=== PATIENT | female | born 1940 | race Caucasian/White ===

== ENCOUNTER 2017-04-16 17:19 | Emergency (ER) | payer OTHER ==
[~2017-04-16] VITALS: Ht 160 cm; Wt 44.5 kg
[~2017-04-16 17:19] MED LIST: ACETAMINOPHEN-1 EAC1 PO; ASPIRIN325; CALCIUM; COREG6.25 MG PO; FISHOIL; HYDROCHLOROTHIA25 M1 PO; HYDROCODONE-AP1 EAC6 PO; LISINOPRIL10 MG; LISINOPRIL5 MG PO; LOVENOX SUBQ; LUTEIN20 MG PO; METAMUCIL PAC1 UDPK1; MULTIVITAMINS PO; NORCO 5-325 TA1 EACH PO; PRAVACHOL40 M1 PO; PRAVASTATIN SOD20 MG; STOOL SOFTENER1 EAC2 PO; ULTRAM 50MG TAB50 MG PO; VITAMIN D1000 UNI1; [UNRECOGNIZED DRUG - OTHER] PO
[2017-04-16 18:01] VITALS: BP 159/62
== END 2017-04-16 18:02 | disposition home or self-care (01) ==
LOC: M.ERS 17:19
DX: S01.01XA Laceration without foreign body of scalp, initial encounter (principal); I10 Essential (primary) hypertension; F17.210 Nicotine dependence, cigarettes, uncomplicated; Z88.5 Allergy status to narcotic agent; Z88.1 Allergy status to other antibiotic agents; W22.8XXA Striking against or struck by other objects, initial encounter; Y93.89 Activity, other specified; Y92.038 Other place in apartment as the place of occurrence of the external cause; Y99.8 Other external cause status

== ENCOUNTER 2017-04-26 13:20 | Emergency (ER) | payer OTHER ==
[~2017-04-26] VITALS: Ht 160 cm; Wt 44.5 kg
[2017-04-26 13:51] VITALS: BP 180/87
== END 2017-04-26 13:53 | disposition home or self-care (01) ==
LOC: M.ERS 13:20
DX: S01.01XD Laceration without foreign body of scalp, subsequent encounter (principal); I10 Essential (primary) hypertension; F17.210 Nicotine dependence, cigarettes, uncomplicated; Z88.8 Allergy status to other drugs, medicaments and biological substances; Z88.5 Allergy status to narcotic agent; X58.XXXD Exposure to other specified factors, subsequent encounter

== ENCOUNTER → 2019-02-28 | Outpatient (CLI) | payer MEDICARE ==
--- NOTE | 2019-02-28 15:06 | CARDNUC ---
[place] [address] CARDIAC NUCLEAR IMAGING REPORT Name: MILLICENTANUPAM Lopez Room: [facility]#: [id number] Admission: 02/28/19 Attend Phys: Benito Mccray, Discharge: Date of : 44 Date of Service: 02/28/19 1506 Report #: [id number] THIS REPORT FOR: //name// APPROVED REPORT Imaging Protocol: Rest Tc-99m/Stress Tc-99m 1 day Study performed: 02/28/2019 09:30:08 Indication: Chest pain, Dyspnea Patient Location: Out-Patient Stress Tech: Rama Jones Stress Nurse: Yuliya Vela RN NM Tech:DANIEL Thornton Ht: 4 ft 11 in Wt: 98 lbs BSA: 1.36 m2 BMI: 19.79 Medical History Medical History: Angina, Arrhythmia, CAD, Current Smoker, COPD, Fatigue, HTN, Hyperlipidemia, SOB, Weakness, Spinal Fusion, LE edema, Palpitations. Medications: Pravastatin, Lisinopril/HCTZ, ASA 325 Mg. Allergies: Actonel, Biaxin, Codeine, HCTZ/Triameterene. Cardiac Risk Factors: Age, Current Smoker, FHX of CAD, HTN, Hyperlipidemia, SOB. Previous Cardiac Procedures: Cardiac Catherization Pretest Chest Pain Characteristics: No chest pain Exercise History: Sedentary Physical Disabilities: Spinal fustion, Kyphosis Meds Held (24 hrs): None Resting Data Rest SPECT myocardial perfusion imaging was performed in supine position 30 minutes following the intravenous injection of 10.5 mCi of Tc-99m Sestamibi. Time of rest injection: 0800 Date: 02/28/2019 The images were gated to evaluate regional wall motion and calculate left ventricular ejection fraction. Administration Route: IV Administration Site: Left AC Pharmacologic Stress Pharmacologic stress test was performed by injecting Regadenoson 0.4 mg IV push over 10-15 seconds immediately followed by the intravenous injection of 34.0 mCi of Tc-99[place] [address] CARDIAC NUCLEAR IMAGING REPORT Name: MILLICENT,ANUPAM John Room: [facility]#: [id number] Admission: 02/28/19 Attend Phys: Benito Mccray, Discharge: Date of : 44 Date of Service: 02/28/19 1506 Report #: [id number] Time of stress injection: Date: 02/28/2019 Administration Route: IV Administration Site: Left AC Gated Stress SPECT was performed 40 minutes after stress injection. The images were gated to evaluate regional wall motion and calculate left ventricular ejection fraction. Prone imaging was performed. Stress Test Details Stress Test: Pharmacologic stress testing performed using 0.4 mg of regadenoson per 5 mL given IV over 10 seconds. Reason for pharmacologic stress test: Spinal fusion, Back pain, Kyphosis.. HR Max Heart Rate (APMHR): 143 bpm Resting HR: 86 bpm Target HR (85% APMHR): 121 bpm Max HR Achieved: 110 bpm % of APMHR: 76 Recovery HR: 94 bpm BP Resting BP: 163/87 mmHg Max BP: 139/79 mmHg Recovery BP: 161/87 mmHg ECG Resting ECG: Sinus Rhythm, nonspecific ST-T abnormalities Stress ECG: Sinus Tachycardia, nonspecific ST-T abnormalities ST Change: None Arrhythmia: None Recovery ECG: Sinus Rhythm, nonspecific ST-T abnormalities Recovery ST Change: None Recovery Arrhythmia: None Clinical Reason for Termination: Completed protocol Stress Symptoms: Dyspnea Exercise duration: 00 min 00 sec Exercise capacity: 1.00 METs The patient tolerated Lexiscan infusion without significant cardiac [place] [address] CARDIAC NUCLEAR IMAGING REPORT Name: ANUPAM RICKS Room: [facility]#: [id number] Admission: 02/28/19 Attend Phys: Benito Mccray, Discharge: Date of : 44 Date of Service: 02/28/19 1506 Report #: [id number] A 79 year old female presented for sitting Lexiscan r/t CP, NELSON and palpitations. Test well tolerated. Recovery unremarkable with PO caffeine, effective. Patient was escorted by staff to Nuclear Medicine for imaging. Patient was stable and stated she felt good at that time. Stress ECG Conclusion The baseline 12-lead EKG shows sinus rhythm with diffuse nonspecific ST segment depression. EKGs during and post Lexiscan infusion show sinus rhythm and sinus tachycardia with persistent nonspecific ST segment depression. There were no stress-induced arrhythmias. Study Quality Study: Good Artifact: No artifact Study Data At rest, the left ventricular ejection fraction was 88%.. Post stress, the left ventricular ejection was 85%.. TID = 0.94. Perfusion Normal left ventricular perfusion. Wall Motion Normal left ventricular wall motion. Nuclear Conclusion ECG Findings: negative for ischemia Clinical Findings: negative for ischemia Nuclear Findings: negative for ischemia Exercise Capacity: not assessed Left Ventricular Function: normal Risk Study: low Myocardial perfusion images show no defects to suggest infarct or ischemia. Left ventricular systolic function is normal on gated studies. This is a low risk study. <Conclusion> The baseline 12-lead EKG shows sinus rhythm with diffuse nonspecific ST segment depression. EKGs during and post [place] [address] CARDIAC NUCLEAR IMAGING REPORT Name: ANUPAM RICKS [id number] Admission: 02/28/19 Attend Phys: Benito Mccray, Discharge: Date of : 44 Date of Service: 02/28/19 1506 Report #: [id number] sinus rhythm and sinus tachycardia with persistent nonspecific ST segment depression. There were no stress-induced arrhythmias. <ELECTRONICALLY SIGNED> By: Benito Mccray MD, FACC 02/28/19 1506 1506 1506 Benito Mccray MD, FACC /INF
== END ==
LOC: M.NUC 02-01 13:20
DX: R07.9 Chest pain, unspecified (principal); R06.00 Dyspnea, unspecified; I25.10 Atherosclerotic heart disease of native coronary artery without angina pectoris; I10 Essential (primary) hypertension; E78.00 Pure hypercholesterolemia, unspecified; J44.9 Chronic obstructive pulmonary disease, unspecified; Z87.891 Personal history of nicotine dependence; Z79.899 Other long term (current) drug therapy; Z88.8 Allergy status to other drugs, medicaments and biological substances

== ENCOUNTER 2019-08-03 09:19 | Inpatient (IN) | payer MEDICARE ==
[~2019-08-03] VITALS: Ht 149.9 cm; Wt 45.8 kg
[~2019-08-03 09:19] MED LIST changes: -ASPIRIN325 PO; -CALCIUM 600 +1 EAC1 PO; -HYDROCODON-ACE1 EAC7 PO; -TYLENOL325 MG PO
[2019-08-03 09:22] VITALS: BP 162/68
[2019-08-03 10:08] LABS: ABSOLUTE LYMPHOCYTES 0.8 thou/uL (0.8-5.3); ABSOLUTE MONOCYTES 0.3 thou/uL (0.0-1.2); ABSOLUTE NEUTROPHILS 3.7 thou/uL (1.6-8.1); BASOPHILS 0.5 %; EOSINOPHILS 0.6 %; HEMATOCRIT 39.2 % (37.0-47.0); HEMOGLOBIN 14.4 gm/dL (12.0-15.0); LYMPHOCYTES 16.3 %; MCH 33.3 pg (26.0-34.0); MCHC 36.6 g/dL (28.0-37.0); MONOCYTES 6.5 %; NUCLEATED RBCS 0 /100WBC; PLATELET COUNT* 214 thou/uL (150-400); POLYS 76.1 %; RBC 4.31 mil/uL (4.20-5.00); RDW-CV 13.7 % (10.5-14.5); WBC 4.9 thou/uL (4.0-11.0)
[2019-08-03 10:19] LABS: APTT 25.8 Seconds (25.0-31.3); PROTIME 10.4 Seconds (9.20-11.50)
[2019-08-03 10:36] LABS: CALCIUM 8.9 mg/dL (8.5-10.1); POTASSIUM 4.4 mmol/L (3.5-5.1)
--- NOTE | 2019-08-03 10:36 | NUR ---
CT COMPLEATED PT TAKEN FOR X RAY'S
[2019-08-03 10:45] LABS: TOTAL PROTEIN 6.9 g/dL (6.4-8.2)
[2019-08-03 14:25] VITALS: BP 140/67
--- NOTE | 2019-08-03 15:54 | EKG ---
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 : 1940 Requested By: Jimmy Oliveira Order Number: [id number] MD: Vance Campo Measurements Intervals [place] Rate: 88 P: 75 WA: 165 QRS: 65 QRSD: 83 T: 3 QT: 350 QTc: 424 Interpretive Statements Sinus rhythm Borderline repolarization abnormality Compared to ECG 01/08/2017 09:14:51 Possible ischemia no longer present Electronically Signed On 08-03-2019 15:53:28 CDT by Vance Campo [email or web address] <ELECTRONICALLY SIGNED> By: Vance Campo MD, [facility] 08/03/19 1553 0941 0941 Vance Campo MD, [facility] /EPI
[2019-08-03 18:23] VITALS: BP 92/60
[2019-08-03 20:00] VITALS: BP 149/58
[2019-08-04] VITALS: BP 111/47
[2019-08-04 04:00] VITALS: BP 132/59
[2019-08-04 05:35] LABS: ABSOLUTE LYMPHOCYTES 0.6 thou/uL (0.8-5.3); ABSOLUTE MONOCYTES 0.5 thou/uL (0.0-1.2); ABSOLUTE NEUTROPHILS 6.2 thou/uL (1.6-8.1); BASOPHILS 0.4 %; EOSINOPHILS 0.3 %; HEMATOCRIT 34.3 % (37.0-47.0); HEMOGLOBIN 12.6 gm/dL (12.0-15.0); LYMPHOCYTES 8.8 %; MCH 33.7 pg (26.0-34.0); MCHC 36.7 g/dL (28.0-37.0); MCV 91.7 fL (80.0-100.0); MONOCYTES 6.8 %; MPV 7.4 fl. (7.2-11.1); NUCLEATED RBCS 0 /100WBC; PLATELET COUNT* 223 thou/uL (150-400); POLYS 83.7 %; RBC 3.74 mil/uL (4.20-5.00); RDW-CV 13.8 % (10.5-14.5); WBC 7.4 thou/uL (4.0-11.0)
--- NOTE | 2019-08-04 05:38 | NUR ---
ASSESSMENTS COMPLETED AT BEDSIDE, PLEASE SEE CHARTING FOR DETAILS. MEDICATIONS ADMINISTERED PER MAR. HOURLY ROUNDING COMPLETED FOR SAFETY. CURRENTLY RESTING IN BED WITH CALL LIGHT WITHIN REACH. PT HAS HAD CONT PAIN TO LEFT LEG. RECIEVED NEW ORDERS FOR PRN PAIN MEDICATION WITH PARTIAL RELIEF.
[2019-08-04 05:42] LABS: CALCIUM 8.2 mg/dL (8.5-10.1)
[2019-08-04 08:00] VITALS: BP 131/53
--- NOTE | 2019-08-04 12:26 | NUR ---
cm completed initial assessemnt to discuss d/c planning and explain role. pt lives w/her daughter. her daughter and friends are her support community. pt's dtr is working from home at the time. pt is active and independent w/cares. pt quit job on this tues. pt drives. pt has 0 DME. pt has had hh in past, but does not have a preference and "don't want it unless I absolutely have to." Pt also denies hx w/SNF when asked by cm and states, "no, and I don't want to." cm to cont to follow as assist as needed.
[2019-08-04 13:22] VITALS: BP 108/36
[2019-08-04 13:37] LABS: URINE BILIRUBIN NEGATIVE (Negative); URINE BLOOD NEGATIVE (Negative); URINE CLARITY CLEAR; URINE COLOR YELLOW; URINE GLUCOSE-RANDOM NEGATIVE (Negative); URINE KETONES NEGATIVE (Negative); URINE LEUKOCYTES-REFLEX NEGATIVE (Negative); URINE NITRITE-REFLEX NEGATIVE (Negative); URINE PROTEIN NEGATIVE (Negative); URINE UROBILINOGEN 0.2 E.U./dl (0.2-1.0)
[2019-08-04 13:40] LABS: URINE POTASSIUM-RANDOM 20.8 mmol/L
--- NOTE | 2019-08-04 15:31 | NUR ---
ASSUMED CARE OF PATIENT THIS AM AT 0730. PATIENT IS ALERT AND ORIENTED X 4. SHE C/O PAIN AT 8 ON PAIN SCALE THIS AM. PATIENT WAS KEPT NPO UNTIL DR CARREON SAID THAT SHE COULD EAT. PATIENT MEDICATED FOR PAIN PER SCHEDULE. PATIENT STATED PAIN IS NOW CONTROLLED. TELE SHOWS NSR. LEG IMMOBILIZER HAS BEEN INPLACE. PATIENT HAS BEEN WORKING WITH PT AND OT TODAY. URINE SPECIMEN SENT TO LAB. SODIUM CALLED TO DR PEÑA. ORDERS RECIEVED. IV FLUIDS CHANGED TO D5W. FLUID RESTRICTION MAINTAINED. WILL CONTINUE TO MONITOR.
[2019-08-04 17:39] VITALS: BP 127/64
[2019-08-04 20:00] VITALS: BP 112/64
[2019-08-05] VITALS: BP 117/42
[2019-08-05 04:00] VITALS: BP 127/48
[2019-08-05 05:49] LABS: ABSOLUTE BASOPHILS 0.1 thou/uL (0.0-0.2); ABSOLUTE EOSINOPHILS 0.1 thou/uL (0.0-0.7); ABSOLUTE LYMPHOCYTES 1.1 thou/uL (0.8-5.3); ABSOLUTE MONOCYTES 0.5 thou/uL (0.0-1.2); ABSOLUTE NEUTROPHILS 3.8 thou/uL (1.6-8.1); EOSINOPHILS 2.1 %; HEMATOCRIT 33.5 % (37.0-47.0); LYMPHOCYTES 19.7 %; MCH 33.4 pg (26.0-34.0); MCHC 35.9 g/dL (28.0-37.0); MCV 93.2 fL (80.0-100.0); MONOCYTES 9.4 %; MPV 7.2 fl. (7.2-11.1); NUCLEATED RBCS 0 /100WBC; PLATELET COUNT* 214 thou/uL (150-400); POLYS 67.8 %; RBC 3.59 mil/uL (4.20-5.00); RDW-CV 13.8 % (10.5-14.5); WBC 5.6 thou/uL (4.0-11.0)
[2019-08-05 05:55] LABS: CREATININE 0.9 mg/dL (0.6-1.3); POTASSIUM 4.4 mmol/L (3.5-5.1)
--- NOTE | 2019-08-05 05:58 | NUR ---
ASSESSMENTS COMPLETED AT BEDSIDE, PLEASE SEE CHARTING FOR DETAILS. MEDICATIONS ADMINISTERED PER MAR. HOURLY ROUNDING COMPLETED FOR SAFETY. CURRENTLY RESTING IN BED WITH CALL LIGHT WITHIN REACH. ALL CURRENT NEEDS HAVE BEEN MET.
[2019-08-05] MEDS ORDERED: ASPIRIN325 PO (10:49)
[2019-08-05] MEDS ORDERED: HYDROCODON-ACE1 EAC7 PO (10:49)
[2019-08-05 12:00] VITALS: BP 101/50
[2019-08-05 15:48] VITALS: BP 120/52
[2019-08-05 20:00] VITALS: BP 114/61
[2019-08-06] VITALS: BP 126/60
[2019-08-06 04:00] VITALS: BP 123/66
[2019-08-06 09:07] VITALS: BP 124/73
[2019-08-06 12:40] VITALS: BP 128/72
--- NOTE | 2019-08-06 12:46 | NUR ---
PT IN CHAIR NOW DENIES PAIN UNLESS UP AND MOVING IMMOBILIZER IN PLACE WORKED WITH THERAPY DID NOT NEED PAIN MEDS AFTER FLUID RESTRICTION CONTINUES PT HAS USED BEDPAN AND BSC FOR URINATION CALL LIGHT IN REACH
[2019-08-06 17:33] VITALS: BP 132/72
--- NOTE | 2019-08-06 18:25 | NUR ---
PT IS NONWEIGHT-BEARING TO THAT LEFT LOWER EXT. WITH IMMOBILIZER ORTHO STATES COULD BE 2 MONTHS BEFORE SHE IS ABLE TO BEAR WEIGHT
[2019-08-06 19:35] VITALS: BP 148/63
[2019-08-07 00:11] VITALS: BP 110/59
--- NOTE | 2019-08-07 01:30 | NUR ---
ASSUMED CARE OF PT AT 1900. PT IS ALERT AND ORIENTED. VSS. PERRLA. PT REPORTS SOME PAIN. TREATED WITH HYDROCODONE. PT IS IN SINUS RYTHM ON THE TELEMETRY. PT IS RESTING COMFORTABLY IN BED. RESPIRATIONS ARE EVEN AND NONLABORED. WILL CONTINUE TO MONITOR PT.
[2019-08-07 04:00] VITALS: BP 126/66
[2019-08-07 05:32] LABS: CALCIUM 8.5 mg/dL (8.5-10.1); CREATININE 0.8 mg/dL (0.6-1.3); POTASSIUM 4.1 mmol/L (3.5-5.1)
[2019-08-07 08:30] VITALS: BP 117/54
[2019-08-07 11:30] VITALS: BP 118/57
--- NOTE | 2019-08-07 14:00 | NUR ---
SPOKE WITH MAYRA/REHAB [facility]ASON. SHE SAID AUTH IS STILL PENDING WITH INSURANCE. PT.INFORMED. CM WILL FOLLOW.
[2019-08-07 16:00] VITALS: BP 118/58
--- NOTE | 2019-08-07 18:58 | NUR ---
PT IN BED AT THIS TIME PT IS VERY TEARFUL AND "FEELING SORRY FOR HERSELF" PT WANTS TO GO HOME BUT IT IS NOT HANDICAP ACCESSIBLE PT HAS TO GET UP 10 STAIRS TO GET TO HER APARTMENT WALKER NEEDED
[2019-08-07 19:50] VITALS: BP 150/64
[2019-08-08 00:26] VITALS: BP 129/49
--- NOTE | 2019-08-08 03:39 | NUR ---
ASSUMED CARE OF PT AT 1900. PT IS ALERT AND ORIENTED. VSS. PERRLA. NO COMPLAINTS OF PAIN EXCEPT WHEN USING THE BED [place]., PT REFUSES PAIN MEDS. PT IS IN SINUS RYTHM ON THE TELEMETRY. PT IS RESTING COMFORTABLY IN BED. RESPIRATIONS ARE EVEN AND NONLABORED. WILL CONTINUE TO MONITOR PT.
[2019-08-08 04:00] VITALS: BP 111/66
[2019-08-08 07:45] VITALS: BP 117/55
--- NOTE | 2019-08-08 11:40 | NUR ---
PT IN BED THIS AM WORKED WITH PT USED SITTING TO GET UP THE STEPS AND PT STATED PT DID WELL AND WAS SAFE PLAN FOR REHAB TODAY DENIES PAIN CALL LIGHT IN REACH
[2019-08-08 16:40] VITALS: BP 125/53
[2019-08-08 19:40] VITALS: BP 122/66
[2019-08-09] VITALS (7 sets, daily range): BP systolic 114–136; BP diastolic 62–73
--- NOTE | 2019-08-09 03:24 | NUR ---
ASSUMED CARE OF PT AT 1900. PT IS ALERT AND ORIENTED. VSS. PERRLA. PT DENIES NEED FOR PAIN MEDS. PT IS IN SINUS RYTHM ON THE TELEMETRY. PT IS RESTING COMFORTABLY IN BED. RESPIRATIONS ARE EVEN AND NONLABORED. WILL CONTINUE TO MONITOR PT.
--- NOTE | 2019-08-09 14:08 | NUR ---
Nutrition: Pt admitted with femur FX. Likely discharging today. Seen for LOS. She and dtr were in room at visit. Wt: 101#. Regular diet. She stated she is eating well, wants to go home. She stated she can get up and get around fine. She lives with her dtr and her shopping and cooking will be taken care of. Meds, labs, hx noted. Low nutrition risk.
--- NOTE | 2019-08-09 17:28 | NUR ---
SPOKE WITH PT.REGARDING AUTH FOR REHAB STILL PENDING WITH INSURANCE. OFFERED CHOICES OF SNF OR HOME WITH HOME HEALTH IF INS.DENIES. REFUSES SNF. SHE SAID SHE JUST WANTED TO GO HOME TOMORROW. DAUGHTER,CHARIS, WILL BE THERE WITH HER. SHE IS NOT WORKING AT THIS ITME. PT.SAID SHE JUST DOES NOT WANT TO BE A BURDEN TO HER DAUGHTER. EXPLAINED THAT SHE WAS DOING WELL WITH THERAPY AND HER NWB STATUS. SHE IS AGREEABLE TO HH. DOESN'T CARE WHICH AGENCY IS USED. SHE SAID SHE IS LINING UP BORROWING A WC. NEEDS A FRONT WHEEL WALKER. ASKED ABOUT TRANSPORTATION TO . TOLD ABOUT WC VANS AND [facility]. WILL PUT PHONE NUMBERS IN DISCHARGE INSTRUCTIONS. SHE SAID SHE WILL DECIDE ABOUT GETTING IN DAUGHTERS CAR OR USING A WC VAN. WILL DISCUSS PT.GOING HOME WITH IN AM.
--- NOTE | 2019-08-09 18:10 | NUR ---
PT TRANSFERRED TO UNIT. PT ALERT AND ORIENTED. PT ORIENTED TO ROOM. PT ASSESSED. FALL RISK PRECAUTIONS IN PLACE. WILL CONTINUE TO MONITOR.
[2019-08-10 07:26] VITALS: BP 120/67
--- NOTE | 2019-08-10 08:05 | NUR ---
PATIENT HAS RESTED WELL THROUGHOUT THE NIGHT. VSS ON RA. MEDICATIONS GIVEN ORDERED AND CHARTED. PATIENT HAS REMAINED NWB ON LLE. PATIENT UP WITH ASSIST X 1 TO THE BSC. IV IN RIGHT AC-SL. PATIENT INSTRUCTED TO USE CALL LIGHT WHEN NEEDING ASSISTANCE. HOURLY ROUNDS MADE. WILL CONTINUE WITH PLAN OF CARE AND NURSING TO MONITOR.
[2019-08-10 08:51] VITALS: BP 120/67
--- NOTE | 2019-08-10 08:51 | NUR ---
OT,CHAITANYA, REPORTS PT.CRYING, STATING SHE DOES NOT WANT TO BE A BURDEN ON DAUGHTER BY GOING HOME. CM CALLED DAUGHTER,GILLES,ON CELL. SHE SAID HER MOM IS VERY SENSITIVE AND YAAKOV ALL THE TIME. GILLES IS PLANNING ON HER MOM COMING HOME TODAY. SHE CAN PICK HER UP ABOUT 1130. GERALDRN NOTIFIED. PT.USED [facility] IN THE PAST AND SPOKE LAST NIGHT LIKE SHE HAD USED THEM BEFORE AND WOULD LIKE TO USE THEM AGAIN. FAXED REFERRAL AND DISCHARGE SUMMARY TO [facility].
--- NOTE | 2019-08-10 09:45 | NUR ---
[facility] A WALKER FOR PT.TO GET PRIOR TO DISCHARGE FROM [facility] CONSIGNMENT CLOSET. ORDER RECEIVED. GAVE TO GERALD/LABORER CHEESEMAKING TO DISPENSE. FAXED ORDER AND FACE SHEET TO [facility].
--- NOTE | 2019-08-10 12:17 | NUR ---
PT DISCHARGED TO HOME WITH DAUGHTER WITH HOME HEALTH. IV OUT. PT STABLE. BRACE IN PLACE UPON DISCHARGE. PERSONAL BELONGINGS SENT WITH PT.
--- NOTE | 2019-08-24 14:18 | CON ---
[address] [address] CONSULTATION Name: ANUPAM RICKS John Room: [address]#: [id number] Admission: 08/03/19 Attend Phys: César Saul MD Discharge: 08/10/19 Date of : 44 Report #: [id number] THIS REPORT FOR: //name// cc: Aretha Cool Ashley FNP ~ THIS REPORT FOR: //name// CC: César Cool DATE OF SERVICE: 08/04/2019 CONSULTING PHYSICIAN: Dr. Saul. REASON FOR CONSULTATION: Hyponatremia. HISTORY OF PRESENT ILLNESS: A 79-year-old female who was admitted after suffering a distal left femur fracture and found to have significant hyponatremia. She had a sodium yesterday morning of 119. She has no history of hyponatremia. She drinks about 100 ounces of fluid total per day. Her appetite has been good. She eats 2-1/2-3 meals a day. She has no unexpected weight loss. She started hydrochlorothiazide a few days ago. No nausea or vomiting. No other complaints at present time. REVIEW OF SYSTEMS: Constitutional, psych, heme, eyes, ENT, respiratory, cardiac, GI, , endocrine, all negative except as documented above. PAST MEDICAL HISTORY: Hypertension, dyslipidemia, history of DVT, and COPD. SOCIAL HISTORY: Positive for tobacco. FAMILY HISTORY: Not pertinent in this 79-year-old female. CURRENT MEDICATIONS: Reviewed. PHYSICAL EXAMINATION: VITAL SIGNS: Blood pressure is 132/59, pulse 93, respirations 16, and temperature 36.5. GENERAL: No acute distress. EYES: Open. EARS: Externally normal. NECK: Supple. CARDIOVASCULAR: Regular rate. LUNGS: Diminished. ABDOMEN: Soft. MUSCULOSKELETAL: [place] [address] CONSULTATION Name: ANUPAM RICKS Room: [address]#: [id number] Admission: 08/03/19 Attend Phys: César Saul MD Discharge: 08/10/19 Date of : 44 Report #: [id number] PSYCHIATRIC: Awake, alert. LABORATORY DATA: White cell count 7.4, hemoglobin 12.6, platelets 223. Sodium 127, potassium 4, chloride 96, bicarbonate 24, BUN 13, creatinine 1, glucose 106, and calcium 8.2. ASSESSMENT: 1. Hyponatremia with a sodium of 119 at 8 o'clock in the morning on 08/03/2019, it was 127 about 21 hours later, this is about the 8-point correction over 21 hours. This is in the setting of starting hydrochlorothiazide a few days ago, 100 ounces of fluid intake, and femur fracture with significant pain on admission. In 2017, sodium was 138. CT head was okay. 2. Left distal femur fracture. Orthopedics following. 3. Chronic obstructive pulmonary disease. 4. Hypertension. PLAN: 1. Check a chest x-ray. 2. Urine sodium, urinalysis and urine potassium ordered. 3. Check TSH. 4. Currently on IV fluids. I will go ahead and discontinue normal saline and repeat sodium now and have results called to me. Sodium correction for the most part has been appropriate, but I want to ensure that it does not correct too rapidly. 5. Would avoid hydrochlorothiazide indefinitely and in fact I would add it to the allergy list so that she does not get this medication prescribed in the future. We will follow along with you and check lab again in the a.m. as well. Thank you for requesting my opinion in the care and management of this patient. <ELECTRONICALLY SIGNED> By: Stephanie Todd MD 08/24/19 1418 1240 [id number] Todd MD /nt
== END 2019-08-10 12:05 | disposition home health service (06) | DRG 543 ==
LOC: M.ERS 09:19 → M.2W 11:53 → M.TBA-ER 11:53 → M.ORTHSURG 11:53 → M.2W 17:44 → M.ORTHSURG 08-09 18:06
PROVIDERS: Family Medicine; Internal Medicine Nephrology; ADMIT Internal Medicine; ATTEND Internal Medicine
DX: M80.052A Age-related osteoporosis with current pathological fracture, left femur, initial encounter for fracture (principal); E87.1 Hypo-osmolality and hyponatremia; I10 Essential (primary) hypertension; J44.9 Chronic obstructive pulmonary disease, unspecified; G89.29 Other chronic pain; F17.210 Nicotine dependence, cigarettes, uncomplicated; E78.5 Hyperlipidemia, unspecified; M54.9 Dorsalgia, unspecified; Z79.899 Other long term (current) drug therapy; Z79.82 Long term (current) use of aspirin; Z88.6 Allergy status to analgesic agent; Z88.5 Allergy status to narcotic agent; Z86.718 Personal history of other venous thrombosis and embolism

== ENCOUNTER → 2019-08-03 | Outpatient (CLI) | payer MEDICARE ==
[~2019-08-03] MED LIST changes: +ASPIRIN325 PO; +CALCIUM 600 +1 EAC1 PO; +HYDROCODON-ACE1 EAC7 PO; +TYLENOL325 MG PO; -VITAMIN D1000 UNI1; +VITAMIN D3250 MC1 PO
[2019-08-03 09:59] LABS: POTASSIUM 4.2 mmol/L (3.5-5.1)
== END ==
LOC: M.LAB 07:40
PROVIDERS: ATTEND Internal Medicine Cardiovascular Disease
DX: I10 Essential (primary) hypertension (principal)

== ENCOUNTER 2019-08-14 13:49 | Inpatient (IN) | payer MEDICARE ==
[~2019-08-14] VITALS: Ht 149.9 cm; Wt 45.4 kg
[~2019-08-14 13:49] MED LIST changes: +ASPIRIN325 PO; +HYDROCODON-ACE1 EAC7 PO
[2019-08-14 14:32] LABS: ABSOLUTE BASOPHILS 0.1 thou/uL (0.0-0.2); ABSOLUTE EOSINOPHILS 0.2 thou/uL (0.0-0.7); ABSOLUTE LYMPHOCYTES 1.1 thou/uL (0.8-5.3); ABSOLUTE MONOCYTES 0.8 thou/uL (0.0-1.2); ABSOLUTE NEUTROPHILS 4.9 thou/uL (1.6-8.1); BASOPHILS 1.3 %; EOSINOPHILS 2.8 %; HEMATOCRIT 32.8 % (37.0-47.0); HEMOGLOBIN 11.5 gm/dL (12.0-15.0); MCH 33.4 pg (26.0-34.0); MCHC 35.1 g/dL (28.0-37.0); MCV 95.2 fL (80.0-100.0); MPV 7.5 fl. (7.2-11.1); NUCLEATED RBCS 0 /100WBC; PLATELET COUNT* 275 thou/uL (150-400); POLYS 69.9 %; RBC 3.45 mil/uL (4.20-5.00); RDW-CV 15.7 % (10.5-14.5)
[2019-08-14 14:44] LABS: CALCIUM 8.7 mg/dL (8.5-10.1); CREATININE 0.8 mg/dL (0.6-1.3); POTASSIUM 3.9 mmol/L (3.5-5.1)
[2019-08-14 14:49] LABS: ALBUMIN 3.2 g/dL (3.4-5.0); TOTAL BILIRUBIN 0.6 mg/dL (<0.1-1.0); TOTAL PROTEIN 6.3 g/dL (6.4-8.2)
[2019-08-14 15:51] LABS: URINE BILIRUBIN NEGATIVE (Negative); URINE BLOOD NEGATIVE (Negative); URINE CLARITY CLEAR; URINE COLOR YELLOW; URINE GLUCOSE-RANDOM NEGATIVE (Negative); URINE KETONES NEGATIVE (Negative); URINE LEUKOCYTES NEGATIVE (Negative); URINE NITRITE NEGATIVE (Negative); URINE PROTEIN NEGATIVE (Negative); URINE UROBILINOGEN 0.2 E.U./dl (0.2-1.0)
[2019-08-14 17:48] VITALS: BP 110/60
[2019-08-14 18:38] VITALS: BP 150/71
[2019-08-14 21:17] VITALS: BP 144/66
[2019-08-15 07:50] VITALS: BP 143/72
[2019-08-15 16:49] LABS: HEMATOCRIT 37.8 % (37.0-47.0); HEMOGLOBIN 13.3 gm/dL (12.0-15.0); MCH 33.5 pg (26.0-34.0); MCV 95.5 fL (80.0-100.0); MPV 7.8 fl. (7.2-11.1); RBC 3.96 mil/uL (4.20-5.00); RDW-CV 15.6 % (10.5-14.5); WBC 6.3 thou/uL (4.0-11.0)
[2019-08-15 16:53] LABS: CALCIUM 9.2 mg/dL (8.5-10.1); CREATININE 0.7 mg/dL (0.6-1.3); POTASSIUM 4.1 mmol/L (3.5-5.1)
[2019-08-15 16:55] LABS: APTT 24.6 Seconds (25.0-31.3); PROTIME 10.1 Seconds (9.20-11.50)
[2019-08-15 18:04] VITALS: BP 132/48
[2019-08-15 20:00] VITALS: BP 113/65
[2019-08-15 23:29] VITALS: BP 118/64
[2019-08-16 04:45] LABS: CALCIUM 8.8 mg/dL (8.5-10.1); CREATININE 0.8 mg/dL (0.6-1.3); PHOSPHORUS* 3.7 mg/dL (2.5-4.9); POTASSIUM 4.2 mmol/L (3.5-5.1)
[2019-08-16 07:45] VITALS: BP 113/58
[2019-08-16 08:28] VITALS: BP 118/64
[2019-08-16 12:00] VITALS: BP 129/69
[2019-08-16 16:00] VITALS: BP 143/73
[2019-08-16 20:30] VITALS: BP 120/68
[2019-08-17] VITALS: BP 123/68
[2019-08-17 08:00] VITALS: BP 134/60
[2019-08-17 21:00] VITALS: BP 145/69
[2019-08-17 22:00] VITALS: BP 145/69
[2019-08-18 07:35] VITALS: BP 131/79
[2019-08-18] MEDS ORDERED: HYDROCODON-ACE1 EAC7 PO (10:13)
[2019-08-18] MEDS ORDERED: CALCIUM 600 +1 EAC1 PO (10:13)
[2019-08-18] MEDS ORDERED: TYLENOL325 MG PO (10:14)
[2019-08-18 12:09] VITALS: BP 145/69
[2019-08-18 12:15] VITALS: BP 145/69
[2019-08-18 12:17] VITALS: BP 145/69
[2019-08-18 13:33] VITALS: BP 145/69
== END 2019-08-18 13:41 | disposition home health service (06) | DRG 516 ==
LOC: M.ERS 13:49 → M.ORTHSURG 15:56 → M.TBA-ER 15:56 → M.ERS 17:51 → M.ORTHSURG 17:59
PROVIDERS: Emergency Medicine; Radiology Diagnostic Radiology; ADMIT Family Medicine; ATTEND Family Medicine
PROC: 0PU43JZ Supplement Thoracic Vertebra with Synthetic Substitute, Percutaneous Approach (ICD-10-PCS; principal; 2019-08-16)
PROC: 0PS43ZZ Reposition Thoracic Vertebra, Percutaneous Approach (ICD-10-PCS; principal; 2019-08-16)
DX: M80.08XA Age-related osteoporosis with current pathological fracture, vertebra(e), initial encounter for fracture (principal); E44.1 Mild protein-calorie malnutrition; I10 Essential (primary) hypertension; G89.29 Other chronic pain; M54.9 Dorsalgia, unspecified; J44.9 Chronic obstructive pulmonary disease, unspecified; F17.210 Nicotine dependence, cigarettes, uncomplicated; E78.5 Hyperlipidemia, unspecified; M80.852A Other osteoporosis with current pathological fracture, left femur, initial encounter for fracture; Z86.718 Personal history of other venous thrombosis and embolism; Z88.6 Allergy status to analgesic agent; Z88.8 Allergy status to other drugs, medicaments and biological substances; Z82.49 Family history of ischemic heart disease and other diseases of the circulatory system; Z83.6 Family history of other diseases of the respiratory system; Z68.20 Body mass index [BMI] 20.0-20.9, adult; Z79.899 Other long term (current) drug therapy